=== PATIENT | male | born 1965 | race African-American/Black ===

== ENCOUNTER 2018-12-05 07:35 | Inpatient (IN) | payer OTHER ==
[~2018-12-05] VITALS: Ht 182.9 cm; Wt 68.0 kg
--- NOTE | 2018-12-05 10:24 | ERD ---
ER Documentation Chief Complaint Chief Complaint Complains of severe back pain sent by Dr Gomez for evaluation HPI 53-year-old male presents for back pain and left knee pain times 1 month. Patient was evaluated at [facility] for the same issue and was found on CT scan to have a severe herniated disc L4-L5 with left lateral L4 nerve root impingement. Patient follow with Dr. Jacobs neurosurgery. Patient states that he called Dr. Jacobs prior to arriving to the ER today and he was told that Dr. Jacobs wanted him admitted for further work up. Patient states that his back pain and knee pain is rated 7 out of 10. He is taking muscle relaxer, Motrin, gabapentin with some relief. He denies loss of bowel or bladder function. States that he does feel left lower extremity weakness. Denies any significant medical history otherwise. Patient denies recent infection, denies recent back procedure. ROS All systems reviewed and are negative except as per history of present illness. Allergies Allergies: Coded Allergies: No Known Allergy (Unverified , 12/05/18) PMhx/Soc Medical and Surgical Hx: pt denies Medical Hx, pt denies Surgical Hx History of Surgery: No Anesthesia Reaction: No Hx Neurological Disorder: No Hx Respiratory Disorders: No Hx Cardiac Disorders: No Hx Psychiatric Problems: No Hx Miscellaneous Medical Probl: No Hx Alcohol Use: No Hx Substance Use: No Hx Tobacco Use: No Smoking Status: Never smoker Physical Exam Vitals Vital Signs Date Temp Pulse Resp B/P (MAP) Pulse Ox O2 O2 Flow FiO2 Time Delivery Rate 12/05/18 97.0 51 20 140/83 100 07:40 (102) Physical Exam Const: No acute distress Neck: Full range of motion. No meningismus. no midline tenderness Resp: Clear to auscultation bilaterally Cardio: Regular rate and rhythm, systolic murmur noted Abd: Soft, non tender, non distended. Normal bowel sounds, no abdominal bruit noted Skin: No petechiae or rashes Back: no point tenderness, there is some tenderness to palpation of the low back Ext: No cyanosis, or edema, 5/5 muscle strength right lower extremity, 4/5 muscle strength left lower extremity, diffuse left knee pain to palpation, left foot mildly cool Neur: Awake and alert, bilateral upper and lower extremity sensation intact Psych: Normal Mood and Affect Result Diagram: 12/05/18 0829 12/05/18 0829 Results 24 hrs Laboratory Tests Test 12/05/18 08:29 White Blood Count 4.0 10^3/ul Red Blood Count 5.21 10^6/ul Hemoglobin 13.6 g/dl Hematocrit 41.4 % Mean Corpuscular Volume 79.5 fl Mean Corpuscular Hemoglobin 26.1 pg Mean Corpuscular Hemoglobin Concent 32.9 g/dl Red Cell Distribution Width 13.6 % Platelet Count 198 10^3/UL Mean Platelet Volume 10.5 fl Immature Granulocytes % 0.200 % Neutrophils % 52.8 % Lymphocytes % 31.3 % Monocytes % 10.7 % Eosinophils % 4.0 % Basophils % 1.0 % Nucleated Red Blood Cells % 0.0 /100WBC Immature Granulocytes # 0.010 10^3/ul Neutrophils # 2.1 10^3/ul Lymphocytes # 1.3 10^3/ul Monocytes # 0.4 10^3/ul Eosinophils # 0.2 10^3/ul Basophils # 0.0 10^3/ul Nucleated Red Blood Cells # 0.0 10^3/ul Prothrombin Time 12.3 Sec Prothrombin Time Ratio 1.0 INR International Normalized Ratio 0.90 Activated Partial Thromboplast Time 32.2 Sec Sodium Level 144 mmol/L Potassium Level 4.2 mmol/L Chloride Level 104 mmol/L Carbon Dioxide Level 30 mmol/L Anion Gap 10 Blood Urea Nitrogen 12 mg/dl Creatinine 1.07 mg/dl Est Glomerular Filtrat Rate mL/min > 60 mL/min Glucose Level 88 mg/dl Calcium Level 9.8 mg/dl Total Bilirubin 0.8 mg/dl Direct Bilirubin 0.00 mg/dl Indirect Bilirubin 0.8 mg/dl Aspartate Amino Transf (AST/SGOT) 43 IU/L Alanine Aminotransferase (ALT/SGPT) 41 IU/L Alkaline Phosphatase 58 IU/L Total Protein 7.5 g/dl Albumin 4.4 g/dl Globulin 3.10 g/dl Albumin/Globulin Ratio 1.41 Procedures/MDM Medical Decision Making: Differential diagnosis includes but not limited to muscle strain, ligamentous sprain, epidural abscess, osteomyelitis, osteoarthritis, herniated disc, compression fracture, aortic aneurysm, kidney stone, pyelonephritis, pancreatit is. Patient appeared well on physical examination. Nontoxic appearing. Patient appeared well on physical examination. Nontoxic appearing. No recent back procedure, therefore low suspicion for epidural abscess No recent infection, therefore low suspicion for osteomyelitis No trauma, therefore low suspicion for fracture No chest pain, abdominal pain and no pulse deficits noted, therefore low suspi cion for aortic dissection or pancreatitis No flank pain or fever to suggest pyelonephritis or kidney stone Lab: CBC: Shows mildly low WBC of 4.0, mild anemia of 13 CMP: no e/o severe acidosis, alkalosis, renal failure, diabetic ketoacidosis, liver disease PT, PTT INR all within normal limits EKG: Rate/Rhythm: Sinus bradycardia with heart rate 51 QRS, ST, T-waves: No changes consistent w/ acute ischemia Impression: No evidence of ischemia or arrhythmia Patient does not have any asymptoms associated with his sinus bradycardia. There was a murmur noted on physical exam however patient states he has had this since childhood. Spoke to Dr. Jacobs, neurosurgery, would like patient admitted for vascular work up. Dr. Frederick, admitting physician was contacted and agreed to admit patient for further care. Dr. Jacobs will also see the patient. Disclaimer: Inadvertent spelling and grammatical errors are likely due to EHR/dictation software use and do not reflect on the overall quality of patient care. Also, please note that the electronic time recorded on this note does not necessarily reflect the actual time of the patient encounter. YEMI PAT DO Dec 05, 2018 10:24
[2018-12-05] MEDS ORDERED: ACETAMINOPHEN 325 MG TAB PO PRN ×2 (12:00→16:00)
[2018-12-05] MEDS ORDERED: ONDANSETRON 4 MG INJ IV PRN (12:00)
[2018-12-05] MEDS ORDERED: METH500T8 PO (14:33)
[2018-12-05] MEDS ORDERED: GABA100C14 PO (14:34)
[2018-12-05] MEDS ORDERED: IBUP-1542 PO (14:35)
[2018-12-05 14:46] VITALS: Ht 182.9 cm; Wt 68.0 kg
[2018-12-05 15:14] VITALS: BP 119/79; PULSE 53; RESP 18
[2018-12-05] MEDS ORDERED: IBUPROFEN 600 MG TAB PO PRN (16:00)
[2018-12-05] MEDS ORDERED: HYDROCODONE/APAP (5/325) TAB PO PRN (16:00)
[2018-12-05] MEDS: METHOCARBAMOL 500 MG TAB PO SCH (17:45)
--- NOTE | 2018-12-05 18:40 | CONS ---
DATE OF ADMISSION: 12/05/2018 DATE OF CONSULTATION: 12/05/2018 REASON FOR CONSULTATION: Bradycardia. REQUESTING PHYSICIAN: Dr. Leoncio Frederick HISTORY OF PRESENT ILLNESS: Mr. Fay is a 53-year-old male with a history of a heart murmur, on no baseline medications, who states that he was at his friend's house and subsequently had to sneeze and after sneezing felt a pop in his back, and per chart biopsy, a history of a herniated disk, L4-L5, with an L4 nerve root impingement, who presents with back pain and left knee pain ongoing x1 month associated with lower extremity weakness. Upon arrival, temperature 97, blood pressure 140/83, pulse 60, respiratory rate 20, satting 100%. The patient's labs: White blood cell count 4, hemoglobin 13.6, platelet count of 198; sodium 144, potassium 4.2, creatinine 1.0, BUN 12, AST 43, ALT 41; INR 0.9. The patient underwent a knee x-ray revealing small vessel disease near the tibial tuberosities. The patient's electrocardiogram revealed sinus bradycardia at 51, normal axis, normal intervals, nonspecific ST and T- wave abnormalities. The patient was subsequently admitted to the floor, and since admit to the floor, he denies chest pain, shortness of breath. PAST MEDICAL HISTORY: As above in the HPI. MEDICATIONS CURRENTLY IN THE HOSPITAL: 1. Zofran. 2. Tylenol. ALLERGIES: NO KNOWN DRUG ALLERGIES. SOCIAL HISTORY: No tobacco, EtOH, illicit drug use. FAMILY HISTORY: No history of sudden cardiac or early CAD. REVIEW OF SYSTEMS: As above in the HPI. CONSTITUTIONAL: No fevers or chills. PULMONARY: No current shortness of breath. CARDIOVASCULAR: No current chest pain. Bradycardia. GASTROINTESTINAL: No vomiting. GENITOURINARY: No hematuria. MUSCULOSKELETAL: Back pain and left knee and leg pain. PSYCHIATRIC: No documented psych history. NEUROLOGIC: No documented history of CVA. PHYSICAL EXAMINATION: VITAL SIGNS: Temperature 98.4, blood pressure 101/69, pulse 60, respiratory rate 20, satting 98%. GENERAL: The patient is alert, awake, in no acute distress. NECK: JVP approximately 8 to 9 cm of water. CHEST: Fair air movement throughout. HEART: Bradycardic. Regular rhythm. Normal S1, S2. A I/ systolic murmur. Nondisplaced PMI. ABDOMEN: Positive bowel sounds. Soft. EXTREMITIES: No significant pitting edema with 1+ pulses bilateral posterior tibial. LABORATORY DATA: Labs most recently from today. No further labs for my review at this time. IMAGING STUDIES: As above in the HPI. No further imaging studies for my review at this time. ELECTROCARDIOGRAM: As above in the HPI. No further electrocardiograms for my review at this time. IMPRESSION: 1. Bradycardia with stable blood pressure at this time. 2. Abnormal electrocardiogram. Assess for acute coronary syndrome. 3. Hypertension, labile, borderline when he first came in, now fine, possibly just due to pain. 4. Back pain. 5. History of herniated disk. 6. Knee pain. RECOMMENDATIONS: 1. At this time, we would check serial EKGs to assess for any significant ongoing change: An EKG in the morning, EKG for any complaints of chest pain or change in rhythm. 2. We will complete the patient's rule-out myocardial infarction to ensure that the patient's EKG abnormalities are chronic in nature and not due to any recent acute coronary syndrome. 3. Check a TSH to assess the patient's current thyroid state and its possible contribution to bradyarrhythmias. 4. Check a fasting lipid panel for general risk stratification and initiate lipid medication as necessary. 5. Check a 2D echo to further assess the etiology of the patient's systolic murmur and assess for any other structural heart disease. 6. Ongoing surgical and likely orthopedic-surgical evaluation of knee and back pain. Thank you for allowing me to take part in the care of this patient. I will continue to follow very closely with you, with further recommendations to be made as the patient progresses through his inpatient hospital clinical course. Dictated By: MATEO RUFF/LAUREANO Conf#: [id number] DID#: [id number] CC: LEONCIO FREDERICK MD;*EndCC* MTDD
[2018-12-05 20:00] VITALS: BP 111/52; PULSE 61; RESP 18
[2018-12-05] MEDS: GABAPENTIN 100 MG CAP PO SCH (21:20)
--- NOTE | 2018-12-05 21:56 | HP ---
Date/Time of Note Date/Time of Note DATE: 12/05/18 TIME: 21:56 Assessment/Plan VTE Prophylaxis SCD contraindicated: other Pharmacological prophylaxis: other Lines/Catheters IV Catheter Type (from Nrsg): Saline Lock Assessment/Plan Assessment/Plan - Back pain. -per neurosurgery - pain control - Bradycardia - stable blood pressure now - cardiology consult - Abnormal electrocardiogram. Assess for acute coronary syndrome. - Hypertension - cardio follows, - History of herniated disk. - Knee pain possibly 2/2 herniated disk - neurosx follows Cardiology follows; will get cardiac clearance for possible surgery. Plan of care dw Dr Salinas/ staff Result Diagram: 12/05/18 0829 12/05/18 0829 Results 24hrs Laboratory Tests Test 12/05/18 08:29 12/05/18 17:59 White Blood Count 4.0 L Red Blood Count 5.21 Hemoglobin 13.6 L Hematocrit 41.4 L Mean Corpuscular Volume 79.5 L Mean Corpuscular Hemoglobin 26.1 L Mean Corpuscular Hemoglobin Concent 32.9 Red Cell Distribution Width 13.6 Platelet Count 198 Mean Platelet Volume 10.5 H Immature Granulocytes % 0.200 Neutrophils % 52.8 Lymphocytes % 31.3 Monocytes % 10.7 Eosinophils % 4.0 Basophils % 1.0 Nucleated Red Blood Cells % 0.0 Immature Granulocytes # 0.010 Neutrophils # 2.1 Lymphocytes # 1.3 Monocytes # 0.4 Eosinophils # 0.2 Basophils # 0.0 Nucleated Red Blood Cells # 0.0 Prothrombin Time 12.3 Prothrombin Time Ratio 1.0 INR International Normalized Ratio 0.90 Activated Partial Thromboplast Time 32.2 Sodium Level 144 Potassium Level 4.2 Chloride Level 104 Carbon Dioxide Level 30 Anion Gap 10 Blood Urea Nitrogen 12 Creatinine 1.07 Est Glomerular Filtrat Rate mL/min > 60 Glucose Level 88 Calcium Level 9.8 Total Bilirubin 0.8 Direct Bilirubin 0.00 Indirect Bilirubin 0.8 Aspartate Amino Transf (AST/SGOT) 43 Alanine Aminotransferase (ALT/SGPT) 41 Alkaline Phosphatase 58 Total Protein 7.5 Albumin 4.4 Globulin 3.10 Albumin/Globulin Ratio 1.41 Thyroid Stimulating Hormone (TSH) 1.080 Troponin I < 0.012 HPI/ROS Admit Date/Time Admit Date/Time Dec 05, 2018 at 11:41 am Hx of Present Illness Mr. aFy is a 53-year-old male with a past history of a heart murmur- without being on no medications , herniated back disc. Patient reported that when after he sneezed ; felt a pop in his back. Patient has history of a herniated disk, L4-L5, with an L4 nerve root impingement. Patient is admitted with c/o back pain and left knee pain x1 month associated with lower extremity weakness. During admission, temperature 97, blood pressure 140/83, pulse 60, respiratory rate 20, setting 100%. Lab work - White blood cell count 4, hemoglobin 13.6, platelet count of 198; sodium 144, potassium 4.2, creatinine 1.0, BUN 12, AST 43, ALT 41; INR 0.9. The patient underwent a knee x-ray revealing small disease near the tibial tuberosities. - EKG-revealed sinus bradycardia at 51, normal axis, normal intervals, nonspecific ST and T- wave abnormalities. Patient is admitted under Dr Frederick for further evaluation and treatment. Patient is seen in room; seems comfortable; fairly oriented. She denies any chest pain, shortness of breath, dizziness, headache, palpitations, abdominal pain , nausea, vomitting, bilateral calf pain. Plan of care dw staff. PAST MEDICAL HISTORY: As above in the HPI. MEDICATIONS CURRENTLY IN THE HOSPITAL: 1. Zofran. 2. Tylenol. ALLERGIES: NO KNOWN DRUG ALLERGIES. ROS Eyes: no complaints ENT: no complaints Respiratory: no complaints Cardiovascular: no complaints Gastrointestinal: no complaints Genitourinary: no complaints Musculoskeletal: back pain, bone/joint pain, restricted range of motion, other (Back pain and left knee and leg pain.) Skin: no complaints Neurologic: no complaints Endocrine: no complaints Psychological: nl mood/affect Immunologic: no complaints PMH/Family/Social Past Medical History SOCIAL HISTORY: No tobacco, EtOH, illicit drug use. FAMILY HISTORY: No history of sudden cardiac or early CAD. Medications Current Medications Acetaminophen (Tylenol Tab) 650 mg Q6H PRN PO MILD PAIN(1-3)OR ELEVATED TEMP; Start 12/05/18 at 16:00 Acetaminophen/ Hydrocodone Bitart ([place] (5/325)) 1 tab Q4H PRN PO MODERATE PAIN LEVEL 4-6; Start 12/05/18 at 16:00 Gabapentin (Neurontin) 100 mg BID PO Last administered on 12/05/18at 21:20; Admin Dose 100 MG; Start 12/05/18 at 21:00 Ibuprofen (Motrin) 600 mg Q8 PRN PO PAIN; Start 12/05/18 at 16:00 Methocarbamol (Robaxin) 500 mg Q6 PO Last administered on 12/05/18at 17:45; Admin Dose 500 MG; Start 12/05/18 at 18:00 Coded Allergies: No Known Allergy (Unverified , 12/05/18) Social History Alcohol Use: none Smoking Status: Never smoker Drug Use: none Exam/Review of Systems Vital Signs Vitals Vital Signs Date Temp Pulse Resp B/P (MAP) Pulse Ox O2 O2 Flow FiO2 Time Delivery Rate 12/05/18 98.2 61 18 111/52 96 20:00 (71) 12/05/18 Room Air 13:33 Exam Constitutional: alert, oriented, well developed Psych: nl mood/affect Head: atraumatic Eyes: EOMI, nl lids, nl sclera ENMT: nl external ears & nose Neck: non-tender Respiratory: clear to auscultation (bilaterally) Cardiovascular: nl pulses, other (s1s2) Gastrointestinal: soft, non-tender Musculoskeletal: nl extremities to inspection Extremities: normal pulses Neurological: nl mental status, nl speech Skin: nl turgor Lymph: nontender MIRIAM HENSLEY Dec 05, 2018 21:56
[2018-12-06] MEDS: METHOCARBAMOL 500 MG TAB PO SCH ×5 (00:38→23:59)
[2018-12-06 02:00] VITALS: BP 112/60; PULSE 69; RESP 18
[2018-12-06] MEDS: PANTOPRAZOLE (EC) 40 MG TAB PO SCH (06:09)
[2018-12-06 07:00] VITALS: BP 123/74; PULSE 70; RESP 18
[2018-12-06] MEDS: DOCUSATE SODIUM 100 MG CAP PO SCH ×2 (08:09→20:13)
[2018-12-06] MEDS: GABAPENTIN 100 MG CAP PO SCH ×2 (08:09→20:20)
--- NOTE | 2018-12-06 09:40 | CONS ---
Consult Date/Type/Reason Admit Date/Time Dec 05, 2018 at 11:41 Initial Consult Date Date/Time of Note DATE: 12/06/18 TIME: 09:37 Subjective NO acute events - pt stable - HR controlled. ROS: No fever, no chills, no nausea, no vomiting, no diarrhea/constipation No recent weight changes No chest pain, no PND, no orthopnea - mild SOB No dizziness, blurred vision No thirst, no heat or cold intolerance Objective Vitals Vital Signs Date Temp Pulse Resp B/P (MAP) Pulse Ox O2 O2 Flow FiO2 Time Delivery Rate 12/06/18 98.1 70 18 123/74 99 Room Air 07:00 (90) Intake and Output 12/05/18 12/05/18 12/06/18 1515:00 23:00 07:00 IntakeIntake Total 240 ml 120 ml BalanceBalance 240 ml 120 ml Exam General: WN/WD/NAD, AOx 3 HEENT: Unicetric/atraumatic/EOMI (follow commands) NECK: JVD elevated, no thyromegaly Lymph: no lymphadenopathy HEART: regular with no S3, II/ systolic murmur at apex LUNGS: Coarse sounds ABD: soft, NT, ND, +BS : Intact Neuro: non focal SKIN: chronic changes EXT: NO edema Results/Medications Result Diagram: 12/06/1852912/06/18 0530 Results 24 hrs Laboratory Tests Test 12/05/18 17:59 12/06/18 00:20 12/06/18 05:30 Troponin I < 0.012 < 0.012 White Blood Count 4.1 L Red Blood Count 5.04 Hemoglobin 13.2 L Hematocrit 38.8 L Mean Corpuscular Volume 77.0 L Mean Corpuscular Hemoglobin 26.2 L Mean Corpuscular Hemoglobin Concent 34.0 Red Cell Distribution Width 13.6 Platelet Count 194 Mean Platelet Volume 11.0 H Immature Granulocytes % 0.200 Neutrophils % 47.1 Lymphocytes % 35.2 Monocytes % 12.1 H Eosinophils % 4.4 Basophils % 1.0 Nucleated Red Blood Cells % 0.0 Immature Granulocytes # 0.010 Neutrophils # 1.9 Lymphocytes # 1.4 Monocytes # 0.5 Eosinophils # 0.2 Basophils # 0.0 Nucleated Red Blood Cells # 0.0 Sodium Level 141 Potassium Level 4.2 Chloride Level 105 Carbon Dioxide Level 28 Anion Gap 8 Blood Urea Nitrogen 15 Creatinine 1.05 Est Glomerular Filtrat Rate mL/min > 60 Glucose Level 86 Calcium Level 9.5 Triglycerides Level 73 Cholesterol Level 191 LDL Cholesterol, Calculated 121 HDL Cholesterol 55 Cholesterol/HDL Ratio 3.4 Thyroid Stimulating Hormone (TSH) 1.390 Home Meds Reported Medications Ibuprofen* (Ibuprofen*) 600 Mg Tablet, 600 MG PO Q8 PRN for PAIN, TAB 12/05/18 Gabapentin* (Gabapentin*) 100 Mg Capsule, 100 MG PO BID, #90 CAP 12/05/18 Methocarbamol* (Methocarbamol*) 500 Mg Tablet, 500 MG PO Q6, TAB 12/05/18 Medications Current Medications Acetaminophen (Tylenol Tab) 650 mg Q6H PRN PO MILD PAIN(1-3)OR ELEVATED TEMP; Start 12/05/18 at 16:00 Acetaminophen/ Hydrocodone Bitart ([place] (5/325)) 1 tab Q4H PRN PO MODERATE PAIN LEVEL 4-6; Start 12/05/18 at 16:00 Gabapentin (Neurontin) 100 mg BID PO Last administered on 12/05/18at 21:20; Admin Dose 100 MG; Start 12/05/18 at 21:00 Ibuprofen (Motrin) 600 mg Q8 PRN PO PAIN; Start 12/05/18 at 16:00 Methocarbamol (Robaxin) 500 mg Q6 PO Last administered on 12/06/18at 06:09; Admin Dose 500 MG; Start 12/05/18 at 18:00 Pantoprazole (Protonix Tab) 40 mg DAILY@06 PO Last administered on 12/06/18at 06:09; Admin Dose 40 MG; Start 12/06/18 at 06:00 Docusate Sodium (Colace) 100 mg BID PO ; Start 12/06/18 at 09:00 Assessment/Plan Hospital Course (Demo Recall) 1. Bradycardia with stable blood pressure at this time - HR stable - off tele now- not dizzy. 2. Abnormal electrocardiogram. Assess for acute coronary syndrome - r/o PA. 3. Hypertension, labile, borderline when he first came in, now fine, possibly just due to pain - con't to adjust Rx. 4. Back pain -defer to pMD. 5. History of herniated disk - no surgery planned now. 6. Knee pain. DAREK SIMMS MD Dec 06, 2018 09:40
--- NOTE | 2018-12-06 10:05 | RADRPT ---
Echocardiogram Report Patient Name: To BYERS ID: [id number] : 12 (53y 3m)Study Date: 12/05/2018 3:41:23 PM Gender: MAccession #: [id number] Tech: Ady Huerta [facility] Location: 2[address] Ref.Physician: MATEO SKAGGS Height(Cm): BSA: Weight(Kg): Quality: AdequateAccount #: Procedures: Echocardiographic Report: Transthoracic echocardiogram with complete 2D, M-Mode, and doppler examination. Indications: Systolic Murmur. Measurements: 2D/M Mode Doppler Measurement Value Normal Range Measurement Value Normal Range LVIDd 2D 4.2 [ 4.2 - 5.8 ] cm FRANCISCO VTI 0.8 [ 2.0 - 4.0 ] cm2 LVIDs 2D 2.6 [ 2.5 - 4.0 ] cm AV Mean Shankar 2.8 [ 70.0 - 90.0 ] cm/sec LVPWd 2D 1.0 [ 0.6 - 1.0 ] cm AV Mean PG 38.0 [ 2.0 - 4.0 ] mmHg IVSd 2D 1.1 [ 0.6 - 1.0 ] cm AV Peak Shankar 1.0 [ 100.0 - 170.0 ] cm/sec AoR Diam 2D 3.1 [ 2.6 - 3.4 ] cm AV Peak PG 4.0 [ 2.0 - 9.0 ] mmHg EDV 2D 76.8 [ 62.0 - 150.0 ] ml AV VTI 100.0 cm ESV 2D 24.1 [ 21.0 - 61.0 ] ml LVOT Mean Shankar 0.6 [ 60.0 - 80.0 ] cm/sec EF 2D 68.6 [ 52.0 - 72.0 ] percent LVOT Mean PG 2.0 [ 1.0 - 3.0 ] mmHg LA Dimen 2D 3.6 [ 3.0 - 4.0 ] cm LVOT Peak Shankar 0.9 [ 70.0 - 110.0 ] cm/sec LVOT Diam 2.1 [ 2.3 - 2.9 ] cm LVOT Peak PG 3.0 [ 2.0 - 6.0 ] mmHg LVOT VTI 24.4 [ 20.0 - 30.0 ] cm MV E Peak Shankar 0.7 [ 60.0 - 130.0 ] cm/sec MV A Peak Shankar 0.7 [ 100.0 - 120.0 ] cm/sec MV E/A 1.0 [ 0.8 - 1.5 ] ratio MV Decel Time 313 [ 104 - 258 ] msec Lat E` Shankar 0.1 [ 10.0 - 15.0 ] cm/sec Lateral E/E` 7.0 [ 1.0 - 2.0 ] ratio Med E` Shankar 0.1 cm/sec MV E/A 1.0 [ 0.8 - 1.5 ] ratio TR Peak Shankar 2.7 [ 100.0 - 280.0 ] cm/sec TR Peak PG 30.0 mmHg Findings: Left Ventricle: Normal left ventricular systolic function. Normal left ventricular cavity size. Mild concentric left ventricular hypertrophy. Ejection fraction is visually estimated at 65 %. Tissue Doppler/Mitral Doppler indices are consistent with impaired relaxation (Stage I diastolic dysfunction). Right Ventricle: Normal right ventricular size. Normal right ventricular systolic function. Left Atrium: The left atrium is normal in size. Right Atrium: The right atrium is normal in size. Mitral Valve: Mild mitral leaflet calcification. Mild mitral annular calcification. Trace mitral regurgitation. Aortic Valve: Moderate to severe aortic stenosis. Aortic valve Max velocity 4.16 m/sec. Max PG 69.20 mmHg. Mean PG 38.00 mmHg. Aortic valve area 0.81 cm2. Aortic cusps appear moderately calcified. Tricuspid Valve: Normal appearance of the tricuspid valve. Estimated peak PA systolic pressure 38 mmHg. There is mild tricuspid regurgitation. Pericardium: Normal pericardium with no significant pericardial effusion. Aorta: Ascending aorta is mildly dilated. Ascending Aorta 4.50 cm. IVC: Dilated IVC with respiratory collapse consistent with elevated right atrial pressure. Conclusions: Normal left ventricular systolic function. Normal left ventricular cavity size. Mild concentric left ventricular hypertrophy. Ejection fraction is visually estimated at 65 %. Tissue Doppler/Mitral Doppler indices are consistent with impaired relaxation (Stage I diastolic dysfunction). Mild mitral leaflet calcification. Mild mitral annular calcification. Trace mitral regurgitation. Moderate to severe aortic stenosis. Aortic valve Max velocity 4.16 m/sec. Max PG 69.20 mmHg. Mean PG 38.00 mmHg. Aortic valve area 0.81 cm2. Aortic cusps appear moderately calcified. Normal appearance of the tricuspid valve. Estimated peak PA systolic pressure 38 mmHg. There is mild tricuspid regurgitation. Electronically Signed By: Baldomero Bustamante 2018-12-06 10:04:34 PST
[2018-12-06 14:00] VITALS: BP 121/75; PULSE 55; RESP 18
[2018-12-06 21:27] VITALS: BP 115/83; PULSE 50; RESP 20
[2018-12-06 22:00] VITALS: PULSE 61
--- NOTE | 2018-12-06 23:03 | PN ---
Date/Time of Note Date/Time of Note DATE: 12/06/18 TIME: 23:03 Assessment/Plan VTE Prophylaxis Risk score (from Ns)>0 risk: 1 SCD applied (from Ns): Yes Pharmacological prophylaxis: other Lines/Catheters IV [facility] ([facility] Saline Lock Assessment/Plan Result Diagram: 12/06/1830 12/06/18 0530 Results 24hrs Laboratory Tests Test 12/06/18 00:20 12/06/18 05:30 Troponin I < 0.012 White Blood Count 4.1 L Red Blood Count 5.04 Hemoglobin 13.2 L Hematocrit 38.8 L Mean Corpuscular Volume 77.0 L Mean Corpuscular Hemoglobin 26.2 L Mean Corpuscular Hemoglobin Concent 34.0 Red Cell Distribution Width 13.6 Platelet Count 194 Mean Platelet Volume 11.0 H Immature Granulocytes % 0.200 Neutrophils % 47.1 Lymphocytes % 35.2 Monocytes % 12.1 H Eosinophils % 4.4 Basophils % 1.0 Nucleated Red Blood Cells % 0.0 Immature Granulocytes # 0.010 Neutrophils # 1.9 Lymphocytes # 1.4 Monocytes # 0.5 Eosinophils # 0.2 Basophils # 0.0 Nucleated Red Blood Cells # 0.0 Sodium Level 141 Potassium Level 4.2 Chloride Level 105 Carbon Dioxide Level 28 Anion Gap 8 Blood Urea Nitrogen 15 Creatinine 1.05 Est Glomerular Filtrat Rate mL/min > 60 Glucose Level 86 Calcium Level 9.5 Triglycerides Level 73 Cholesterol Level 191 LDL Cholesterol, Calculated 121 HDL Cholesterol 55 Cholesterol/HDL Ratio 3.4 Thyroid Stimulating Hormone (TSH) 1.390 Exam/Review of Systems Exam Vitals Vital Signs Date Temp Pulse Resp B/P (MAP) Pulse Ox O2 O2 Flow FiO2 Time Delivery Rate 12/06/18 98.5 50 20 115/83 99 21:27 (94) 12/06/18 Room Air 14:00 Intake and Output 12/05/18 12/05/18 12/06/18 1515:00 23:00 07:00 IntakeIntake Total 240 ml 120 ml BalanceBalance 240 ml 120 ml Results Results 24hrs Laboratory Tests Test 12/06/18 00:20 12/06/18 05:30 Troponin I < 0.012 White Blood Count 4.1 L Red Blood Count 5.04 Hemoglobin 13.2 L Hematocrit 38.8 L Mean Corpuscular Volume 77.0 L Mean Corpuscular Hemoglobin 26.2 L Mean Corpuscular Hemoglobin Concent 34.0 Red Cell Distribution Width 13.6 Platelet Count 194 Mean Platelet Volume 11.0 H Immature Granulocytes % 0.200 Neutrophils % 47.1 Lymphocytes % 35.2 Monocytes % 12.1 H Eosinophils % 4.4 Basophils % 1.0 Nucleated Red Blood Cells % 0.0 Immature Granulocytes # 0.010 Neutrophils # 1.9 Lymphocytes # 1.4 Monocytes # 0.5 Eosinophils # 0.2 Basophils # 0.0 Nucleated Red Blood Cells # 0.0 Sodium Level 141 Potassium Level 4.2 Chloride Level 105 Carbon Dioxide Level 28 Anion Gap 8 Blood Urea Nitrogen 15 Creatinine 1.05 Est Glomerular Filtrat Rate mL/min > 60 Glucose Level 86 Calcium Level 9.5 Triglycerides Level 73 Cholesterol Level 191 LDL Cholesterol, Calculated 121 HDL Cholesterol 55 Cholesterol/HDL Ratio 3.4 Thyroid Stimulating Hormone (TSH) 1.390 Medications Medication Current Medications Acetaminophen (Tylenol Tab) 650 mg Q6H PRN PO MILD PAIN(1-3)OR ELEVATED TEMP; Start 12/05/18 at 16:00 Acetaminophen/ Hydrocodone Bitart ([place] (5/325)) 1 tab Q4H PRN PO MODERATE PAIN LEVEL 4-6; Start 12/05/18 at 16:00 Gabapentin (Neurontin) 100 mg BID PO Last administered on 12/06/18at 20:20; Admin Dose 100 MG; Start 12/05/18 at 21:00 Ibuprofen (Motrin) 600 mg Q8 PRN PO PAIN; Start 12/05/18 at 16:00 Methocarbamol (Robaxin) 500 mg Q6 PO Last administered on 12/06/18at 17:35; Admin Dose 500 MG; Start 12/05/18 at 18:00 Pantoprazole (Protonix Tab) 40 mg DAILY@06 PO Last administered on 12/06/18at 06:09; Admin Dose 40 MG; Start 12/06/18 at 06:00 Docusate Sodium (Colace) 100 mg BID PO ; Start 12/06/18 at 09:00 MIRIAM HENSLEY Dec 06, 2018 23:03
[2018-12-07 02:24] VITALS: BP 113/76; PULSE 62; RESP 18
[2018-12-07] MEDS: METHOCARBAMOL 500 MG TAB PO SCH ×3 (06:05→18:16)
[2018-12-07] MEDS: PANTOPRAZOLE (EC) 40 MG TAB PO SCH (06:05)
[2018-12-07 08:00] VITALS: BP 97/77; PULSE 77; RESP 20
[2018-12-07] MEDS: DOCUSATE SODIUM 100 MG CAP PO SCH ×2 (08:35→21:00)
[2018-12-07] MEDS: GABAPENTIN 100 MG CAP PO SCH ×2 (08:35→20:30)
--- NOTE | 2018-12-07 11:54 | CONS ---
Assessment/Plan Assessment/Plan Assessment/Plan (Daily) Neurosurgery Consult Note Mechanical LBP with LE radiculopathy Weakness (proximal > distal) Seen by Cardiology Plan Consultation Date/Type/Reason Admit Date/Time Dec 05, 2018 at 11:41 Date/Time of Note DATE: 12/07/18 TIME: 11:52 Past Medical History Home Meds Reported Medications Ibuprofen* (Ibuprofen*) 600 Mg Tablet, 600 MG PO Q8 PRN for PAIN, TAB 12/05/18 Gabapentin* (Gabapentin*) 100 Mg Capsule, 100 MG PO BID, #90 CAP 12/05/18 Methocarbamol* (Methocarbamol*) 500 Mg Tablet, 500 MG PO Q6, TAB 12/05/18 Medications Current Medications Acetaminophen (Tylenol Tab) 650 mg Q6H PRN PO MILD PAIN(1-3)OR ELEVATED TEMP; Start 12/05/18 at 16:00 Acetaminophen/ Hydrocodone Bitart ([place] (5/325)) 1 tab Q4H PRN PO MODERATE P AIN LEVEL 4-6; Start 12/05/18 at 16:00 Gabapentin (Neurontin) 100 mg BID PO Last administered on 12/07/18at 08:35; Admin Dose 100 MG; Start 12/05/18 at 21:00 Ibuprofen (Motrin) 600 mg Q8 PRN PO PAIN; Start 12/05/18 at 16:00 Methocarbamol (Robaxin) 500 mg Q6 PO Last administered on 12/07/18at 06:05; Admin Dose 500 MG; Start 12/05/18 at 18:00 Pantoprazole (Protonix Tab) 40 mg DAILY@06 PO Last administered on 12/07/18at 06:05; Admin Dose 40 MG; Start 12/06/18 at 06:00 Docusate Sodium (Colace) 100 mg BID PO ; Start 12/06/18 at 09:00 Allergies: Coded Allergies: No Known Allergy (Unverified , 12/05/18) Social History Alcohol Use: none Smoking Status: Never smoker Drug Use: none Exam/Review of Systems Exam Vitals Vital Signs Date Temp Pulse Resp B/P (MAP) Pulse Ox O2 O2 Flow FiO2 Time Delivery Rate 12/07/18 97.8 77 20 97/77 (84) 96 08:00 12/06/18 Room Air 14:00 Intake and Output 2/12/06/18 12/07/18 1515:00 23:00 07:00 IntakeIntake Total 1600 ml 240 ml OutputOutput Total 800 ml BalanceBalance 800 ml 240 ml Results Result Diagram: 12/07/18 0517 12/07/18 0517 Results 24hrs Laboratory Tests Test 12/07/18 05:17 White Blood Count 3.8 L Red Blood Count 5.41 Hemoglobin 14.1 Hematocrit 41.9 L Mean Corpuscular Volume 77.4 L Mean Corpuscular Hemoglobin 26.1 L Mean Corpuscular Hemoglobin Concent 33.7 Red Cell Distribution Width 13.3 Platelet Count 196 Mean Platelet Volume 10.9 H Immature Granulocytes % 0.500 H Neutrophils % 50.1 Lymphocytes % 32.8 Monocytes % 11.3 H Eosinophils % 4.5 Basophils % 0.8 Nucleated Red Blood Cells % 0.0 Immature Granulocytes # 0.020 Neutrophils # 1.9 Lymphocytes # 1.3 Monocytes # 0.4 Eosinophils # 0.2 Basophils # 0.0 Nucleated Red Blood Cells # 0.0 Sodium Level 141 Potassium Level 4.1 Chloride Level 104 Carbon Dioxide Level 28 Anion Gap 9 Blood Urea Nitrogen 15 Creatinine 1.01 Est Glomerular Filtrat Rate mL/min > 60 Glucose Level 91 Calcium Level 10.0 Medications Medication Current Medications Acetaminophen (Tylenol Tab) 650 mg Q6H PRN PO MILD PAIN(1-3)OR ELEVATED TEMP; Start 12/05/18 at 16:00 Acetaminophen/ Hydrocodone Bitart ([place] (5/325)) 1 tab Q4H PRN PO MODERATE PAIN LEVEL 4-6; Start 12/05/18 at 16:00 Gabapentin (Neurontin) 100 mg BID PO Last administered on 12/07/18at 08:35; Admin Dose 100 MG; Start 12/05/18 at 21:00 Ibuprofen (Motrin) 600 mg Q8 PRN PO PAIN; Start 12/05/18 at 16:00 Methocarbamol (Robaxin) 500 mg Q6 PO Last administered on 12/07/18at 06:05; Admin Dose 500 MG; Start 12/05/18 at 18:00 Pantoprazole (Protonix Tab) 40 mg DAILY@06 PO Last administered on 12/07/18at 06:05; Admin Dose 40 MG; Start 12/06/18 at 06:00 Docusate Sodium (Colace) 100 mg BID PO ; Start 12/06/18 at 09:00 SUSAN REEDER MD Dec 07, 2018 11:54
[2018-12-07 12:30] VITALS: BP 120/79; PULSE 75; RESP 20
--- NOTE | 2018-12-07 12:51 | PN ---
Date/Time of Note Date/Time of Note DATE: 12/07/18 TIME: 12:48 Assessment/Plan VTE Prophylaxis Risk score (from Nsg)>0 risk: 1 SCD applied (from Nsg): Yes SCD contraindicated: low risk/ambulating Pharmacological prophylaxis: NA/contraindicated Pharm contraindication: low risk/ambulating Lines/Catheters IV Catheter Type (from Nrsg): Saline Lock Assessment/Plan Assessment/Plan Impression Mechanical LBP with LLE Radiculopathy Left leg pain /weakness not purely related to Previous MRI study which was reviewed by during pt's initial outpt evaluation Proximal weakness > distal Pt states "heat/cold difference" to Left leg which radiates --> terminates to anterior portion of knee Plan MRI C/L spine CT Abd/Pelvis with angio to evaluate for any vascular issues will evaluate for possible spine surgery once studies completed. Result Diagram: 12/07/1851612/07/1817 Results 24hrs Laboratory Tests Test 12/07/18 05:17 White Blood Count 3.8 L Red Blood Count 5.41 Hemoglobin 14.1 Hematocrit 41.9 L Mean Corpuscular Volume 77.4 L Mean Corpuscular Hemoglobin 26.1 L Mean Corpuscular Hemoglobin Concent 33.7 Red Cell Distribution Width 13.3 Platelet Count 196 Mean Platelet Volume 10.9 H Immature Granulocytes % 0.500 H Neutrophils % 50.1 Lymphocytes % 32.8 Monocytes % 11.3 H Eosinophils % 4.5 Basophils % 0.8 Nucleated Red Blood Cells % 0.0 Immature Granulocytes # 0.020 Neutrophils # 1.9 Lymphocytes # 1.3 Monocytes # 0.4 Eosinophils # 0.2 Basophils # 0.0 Nucleated Red Blood Cells # 0.0 Sodium Level 141 Potassium Level 4.1 Chloride Level 104 Carbon Dioxide Level 28 Anion Gap 9 Blood Urea Nitrogen 15 Creatinine 1.01 Est Glomerular Filtrat Rate mL/min > 60 Glucose Level 91 Calcium Level 10.0 Exam/Review of Systems Exam Vitals Vital Signs Date Temp Pulse Resp B/P (MAP) Pulse Ox O2 O2 Flow FiO2 Time Delivery Rate 12/07/18 97.8 77 20 97/77 (84) 96 08:00 12/06/18 Room Air 14:00 Intake and Output 12/06/18 12/06/18 12/07/18 1515:00 23:00 07:00 IntakeIntake Total 1600 ml 240 ml OutputOutput Total 800 ml BalanceBalance 800 ml 240 ml Results Results 24hrs Laboratory Tests Test 12/07/18 05:17 White Blood Count 3.8 L Red Blood Count 5.41 Hemoglobin 14.1 Hematocrit 41.9 L Mean Corpuscular Volume 77.4 L Mean Corpuscular Hemoglobin 26.1 L Mean Corpuscular Hemoglobin Concent 33.7 Red Cell Distribution Width 13.3 Platelet Count 196 Mean Platelet Volume 10.9 H Immature Granulocytes % 0.500 H Neutrophils % 50.1 Lymphocytes % 32.8 Monocytes % 11.3 H Eosinophils % 4.5 Basophils % 0.8 Nucleated Red Blood Cells % 0.0 Immature Granulocytes # 0.020 Neutrophils # 1.9 Lymphocytes # 1.3 Monocytes # 0.4 Eosinophils # 0.2 Basophils # 0.0 Nucleated Red Blood Cells # 0.0 Sodium Level 141 Potassium Level 4.1 Chloride Level 104 Carbon Dioxide Level 28 Anion Gap 9 Blood Urea Nitrogen 15 Creatinine 1.01 Est Glomerular Filtrat Rate mL/min > 60 Glucose Level 91 Calcium Level 10.0 Medications Medication Current Medications Acetaminophen (Tylenol Tab) 650 mg Q6H PRN PO MILD PAIN(1-3)OR ELEVATED TEMP; Start 12/05/18 at 16:00 Acetaminophen/ Hydrocodone Bitart ([place] (5/325)) 1 tab Q4H PRN PO MODERATE PAIN LEVEL 4-6; Start 12/05/18 at 16:00 Gabapentin (Neurontin) 100 mg BID PO Last administered on 12/07/18at 08:35; A dmin Dose 100 MG; Start 12/05/18 at 21:00 Ibuprofen (Motrin) 600 mg Q8 PRN PO PAIN; Start 12/05/18 at 16:00 Methocarbamol (Robaxin) 500 mg Q6 PO Last administered on 12/07/18at 12:18; Admin Dose 500 MG; Start 12/05/18 at 18:00 Pantoprazole (Protonix Tab) 40 mg DAILY@06 PO Last administered on 12/07/18at 06:05; Admin Dose 40 MG; Start 12/06/18 at 06:00 Docusate Sodium (Colace) 100 mg BID PO ; Start 12/06/18 at 09:00 HUGH DEL TORO NP Dec 07, 2018 12:51
[2018-12-07] MEDS ORDERED: SOD CHLORIDE 0.9% 100 ML ONE (16:13)
[2018-12-07] MEDS ORDERED: IOHEXOL 100 ML ONE (16:13)
--- NOTE | 2018-12-07 17:16 | CONS ---
Assessment/Plan Assessment/Plan Hospital Course (Demo Recall) IMPRESSION: 1. Bradycardia with stable blood pressure at this time. 2. Abnormal electrocardiogram. Assess for acute coronary syndrome.-neg trop x 2/NL EF by echo 60-65 3. Hypertension-borderline low BP intermittent 4. Back pain. 5. History of herniated disk. 6. Knee pain. 7. Dyslipidemia- LDL 121, HDL 55 Recc: -serial ecg's -Follow BP clsoely -ongoing NRSG eval with MRI pnding -pain control Consultation Date/Type/Reason Admit Date/Time Dec 07, 2018 at 14:02 Initial Consult Date 12/06/18 Type of Consult Cardiology Reason for Consultation Bradycardia Requesting Provider: ELIER ISSA MD Date/Time of Note DATE: 12/07/18 TIME: 17:12 Exam/Review of Systems Vital Signs Vitals Vital Signs Date Temp Pulse Resp B/P (MAP) Pulse Ox O2 O2 Flow FiO2 Time Delivery Rate 12/07/18 98.6 75 20 120/79 98 12:30 (93) 12/06/18 Room Air 14:00 Intake and Output 12/06/18 12/06/18 12/07/18 1515:00 23:00 07:00 IntakeIntake Total 1600 ml 240 ml OutputOutput Total 800 ml BalanceBalance 800 ml 240 ml Exam Exam Review of Systems: CONSTITUTIONAL: No fevers, chills. PULMONARY: No sob CARDIOVASCULAR: No chest pain/palpitations GASTROINTESTINAL: No nausea/vomiting. GENITOURINARY: No hematuria/dysuria. MUSCULOSKELETAL: No myagias/arthalgias. PSYCHIATRIC: The patient denies depression. NEUROLOGIC: No weakness Constitutional: alert Psych: no complaints Head: normocephalic ENMT: mucosa pink and moist Neck: supple, jvd (9 cm water) Respiratory: clear to auscultation Cardiovascular: regular rate and rhythm Gastrointestinal: soft, non-tender Musculoskeletal: muscle weakness (LE bilateral) Extremities: edema (none) Neurological: focal weakness Labs Result Diagram: 12/07/1817 12/07/18 0517 Results 24hrs Laboratory Tests Test 12/07/18 05:17 White Blood Count 3.8 L Red Blood Count 5.41 Hemoglobin 14.1 Hematocrit 41.9 L Mean Corpuscular Volume 77.4 L Mean Corpuscular Hemoglobin 26.1 L Mean Corpuscular Hemoglobin Concent 33.7 Red Cell Distribution Width 13.3 Platelet Count 196 Mean Platelet Volume 10.9 H Immature Granulocytes % 0.500 H Neutrophils % 50.1 Lymphocytes % 32.8 Monocytes % 11.3 H Eosinophils % 4.5 Basophils % 0.8 Nucleated Red Blood Cells % 0.0 Immature Granulocytes # 0.020 Neutrophils # 1.9 Lymphocytes # 1.3 Monocytes # 0.4 Eosinophils # 0.2 Basophils # 0.0 Nucleated Red Blood Cells # 0.0 Sodium Level 141 Potassium Level 4.1 Chloride Level 104 Carbon Dioxide Level 28 Anion Gap 9 Blood Urea Nitrogen 15 Creatinine 1.01 Est Glomerular Filtrat Rate mL/min > 60 Glucose Level 91 Calcium Level 10.0 Medications Medications Current Medications Acetaminophen (Tylenol Tab) 650 mg Q6H PRN PO MILD PAIN(1-3)OR ELEVATED TEMP; Start 12/05/18 at 16:00 Acetaminophen/ Hydrocodone Bitart ([place] (5/325)) 1 tab Q4H PRN PO MODERATE PAIN LEVEL 4-6; Start 12/05/18 at 16:00 Gabapentin (Neurontin) 100 mg BID PO Last administered on 12/07/18at 08:35; Admin Dose 100 MG; Start 12/05/18 at 21:00 Ibuprofen (Motrin) 600 mg Q8 PRN PO PAIN; Start 12/05/18 at 16:00 Methocarbamol (Robaxin) 500 mg Q6 PO Last administered on 12/07/18at 12:18; Admin Dose 500 MG; Start 12/05/18 at 18:00 Pantoprazole (Protonix Tab) 40 mg DAILY@06 PO Last administered on 12/07/18at 06:05; Admin Dose 40 MG; Start 12/06/18 at 06:00 Docusate Sodium (Colace) 100 mg BID PO ; Start 12/06/18 at 09:00 MATEO SKAGGS Dec 07, 2018 17:16
--- NOTE | 2018-12-07 17:55 | PN ---
DATE: 12/07/2018 SUBJECTIVE: The patient continues to have left lower extremity pain mostly in the middle part of the leg. No numbness or tingling. Denies any significant back pain. No reported fever or chills. PHYSICAL EXAMINATION: GENERAL: Revealed the patient to be awake, alert. VITAL SIGNS: Temperature 97.8, pulse 77, respiration 20, blood pressure 97/77, O2 saturation 96% on room air. HEENT: No eye discharge or redness. Nose and ears are normal. NECK: No mass. CHEST: Fairly clear. CARDIOVASCULAR: S1, S2, normal. No murmur. ABDOMEN: Soft, nondistended, nontender. Bowel sounds are present. EXTREMITIES: No leg edema. NEUROLOGIC: The patient is awake, alert, fairly oriented with no gross focal deficit. Left leg exam ination revealed a palpable dorsalis pedis and tibialis posterior. Extremity was not cold. IMPRESSION: History of low back pain and now pain mostly in the left lower extremity. test ne gative. The patient was seen by Dr. Jacobs and will undergo CT lower extremity angiogram and MRI of t he C-spine and L-spine. Further recommendation will depend on patient's hospital course. Chemistry this morning came back normal. Lipid panel revealed LDL of 141. TSH was normal. CBC this month don e this morning, WBC 3.8, hemoglobin 14.1, platelet 196. Plan of care was discussed with patient and his mother. Dictated By: ELIER ISSA MD AB/NTS Conf#: [id number] DID#: [id number] CC: MATEO SKAGGS MD;*EndCC*
[2018-12-07 21:29] VITALS: BP 127/66; PULSE 70; RESP 20
[2018-12-08] MEDS: METHOCARBAMOL 500 MG TAB PO SCH ×4 (00:50→17:43)
[2018-12-08 02:45] VITALS: BP 102/68; PULSE 58; RESP 20
[2018-12-08] MEDS: PANTOPRAZOLE (EC) 40 MG TAB PO SCH (05:32)
[2018-12-08 07:25] VITALS: BP 113/75; PULSE 66; RESP 18
[2018-12-08] MEDS: GABAPENTIN 100 MG CAP PO SCH ×2 (08:39→20:14)
[2018-12-08] MEDS: DOCUSATE SODIUM 100 MG CAP PO SCH ×2 (08:39→20:14)
[2018-12-08 14:10] VITALS: BP 108/74; PULSE 59; RESP 16
--- NOTE | 2018-12-08 14:57 | PN ---
Date/Time of Note Date/Time of Note DATE: 12/08/18 TIME: 14:55 Assessment/Plan VTE Prophylaxis Risk score (from Ns)>0 risk: 1 SCD applied (from [facility]): Yes SCD contraindicated: low risk/ambulating Pharmacological prophylaxis: NA/contraindicated Pharm contraindication: low risk/ambulating Lines/Catheters [facility]from [facility] Saline Lock Central line still needed: No Urinary Cath still in place: No Assessment/Plan Assessment/Plan Neurosurgery Patient seen and examined VSS AAOX4 PERRL FC x 4, slight improvement in LLE weakness (Proximal > Distal) impression MRI C/L spine reviewed and noted. Mild narrowing but not consistent with pt's symptoms CT angio abd/LE negative Plan no surgery indicated at this time recommend Neurology evaluation. Pt's has Father in 40's due to MS follow up with Dr. Jacobs in 2-3 weeks. Result Diagram: 12/08/186 12/08/186 Results 24hrs Laboratory Tests Test 12/08/18 04:46 White Blood Count 4.9 # Red Blood Count 5.27 Hemoglobin 14.0 Hematocrit 40.7 L Mean Corpuscular Volume 77.2 L Mean Corpuscular Hemoglobin 26.6 L Mean Corpuscular Hemoglobin Concent 34.4 Red Cell Distribution Width 13.5 Platelet Count 196 Mean Platelet Volume 10.5 H Immature Granulocytes % 0.400 Neutrophils % 48.0 Lymphocytes % 36.3 Monocytes % 10.6 Eosinophils % 3.9 Basophils % 0.8 Nucleated Red Blood Cells % 0.0 Immature Granulocytes # 0.020 Neutrophils # 2.4 Lymphocytes # 1.8 Monocytes # 0.5 Eosinophils # 0.2 Basophils # 0.0 Nucleated Red Blood Cells # 0.0 Sodium Level 140 Potassium Level 3.9 Chloride Level 105 Carbon Dioxide Level 27 Anion Gap 8 Blood Urea Nitrogen 16 Creatinine 1.04 Est Glomerular Filtrat Rate mL/min > 60 Glucose Level 83 Calcium Level 9.5 Exam/Review of Systems Exam Vitals Vital Signs Date Temp Pulse Resp B/P (MAP) Pulse Ox O2 O2 Flow FiO2 Time Delivery Rate 12/08/18 98.2 59 16 108/74 99 Room Air 14:10 (85) Intake and Output 12/07/18 12/07/18 12/08/18 1515:00 23:00 07:00 IntakeIntake Total 700 ml 480 ml OutputOutput Total 300 ml BalanceBalance 400 ml 480 ml Results Results 24hrs Laboratory Tests Test 12/08/18 04:46 White Blood Count 4.9 # Red Blood Count 5.27 Hemoglobin 14.0 Hematocrit 40.7 L Mean Corpuscular Volume 77.2 L Mean Corpuscular Hemoglobin 26.6 L Mean Corpuscular Hemoglobin Concent 34.4 Red Cell Distribution Width 13.5 Platelet Count 196 Mean Platelet Volume 10.5 H Immature Granulocytes % 0.400 Neutrophils % 48.0 Lymphocytes % 36.3 Monocytes % 10.6 Eosinophils % 3.9 Basophils % 0.8 Nucleated Red Blood Cells % 0.0 Immature Granulocytes # 0.020 Neutrophils # 2.4 Lymphocytes # 1.8 Monocytes # 0.5 Eosinophils # 0.2 Basophils # 0.0 Nucleated Red Blood Cells # 0.0 Sodium Level 140 Potassium Level 3.9 Chloride Level 105 Carbon Dioxide Level 27 Anion Gap 8 Blood Urea Nitrogen 16 Creatinine 1.04 Est Glomerular Filtrat Rate mL/min > 60 Glucose Level 83 Calcium Level 9.5 Medications Medication Current Medications Acetaminophen (Tylenol Tab) 650 mg Q6H PRN PO MILD PAIN(1-3)OR ELEVATED TEMP; Start 12/05/18 at 16:00 Acetaminophen/ Hydrocodone Bitart ([place] (5/325)) 1 tab Q4H PRN PO MODERATE PAIN LEVEL 4-6; Start 12/05/18 at 16:00 Gabapentin (Neurontin) 100 mg BID PO Last administered on 12/07/18at 20:30; Admin Dose 100 MG; Start 12/05/18 at 21:00 Ibuprofen (Motrin) 600 mg Q8 PRN PO PAIN; Start 12/05/18 at 16:00 Methocarbamol (Robaxin) 500 mg Q6 PO Last administered on 12/08/18at 00:50; Ad min Dose 500 MG; Start 12/05/18 at 18:00 Pantoprazole (Protonix Tab) 40 mg DAILY@06 PO Last administered on 12/07/18at 06:05; Admin Dose 40 MG; Start 12/06/18 at 06:00 Docusate Sodium (Colace) 100 mg BID PO ; Start 12/06/18 at 09:00 HUGH DEL TORO NP Dec 08, 2018 14:57
--- NOTE | 2018-12-08 18:31 | PN ---
DATE: 12/08/2018 SUBJECTIVE: The patient continues to have left lower extremity pain with mild proximal weakness. Th e patient was seen by neurosurgery again today and his MRI of the C-spine and lumbar spines were revi ewed and also abdominal angiography was negative for any obstruction. Neurosurgery has recommended t o get a neurology evaluation. The patient does not have any bladder or bowel incontinence. OBJECTIVE: GENERAL: The patient is awake and alert. VITAL SIGNS: Temperature 98.2, pulse 59, respirations 16, blood pressure 108/74 and O2 saturation 99 % on room air. NECK: No mass. CHEST: Fairly clear. CARDIOVASCULAR: S1, S2 normal, no murmur. ABDOMEN: Soft and nontender. Bowel sounds are present. EXTREMITIES: No leg edema. NEUROLOGIC: The patient is awake and alert with left lower extremity weakness proximal more than dis ania. IMPRESSION: 1. Mechanical low back pain with left lower extremity pain and mild weakness. 2. Status post sinus bradycardia when he presented in the ER, negative cardiac workup and bradycardi a has resolved. The patient in the ER had a heart rate of 51. DISPOSITION: After neurology evaluation. The patient's father in his 40s due to multiple scler osis. Dictated By: ELIER SEGOVIA/LAUREANO Conf#: [id number] DID#: [id number]
--- NOTE | 2018-12-08 19:51 | CONS ---
Assessment/Plan Assessment/Plan Hospital Course (Demo Recall) IMPRESSION: 1. Bradycardia with stable blood pressure at this time.-overall improved and stable.TSH WNL 2. Abnormal electrocardiogram. Assess for acute coronary syndrome.-neg trop x 2/NL EF by echo 60-65 3. Hypertension-borderline low BP intermittent 4. Back pain. 5. History of herniated disk. 6. Knee pain. 7. Dyslipidemia- LDL 121, HDL 55 8. DJD 9. Spinal [id number] Recc: -serial ecg's -Follow BP clsoely -pnding neurology evaluation. Per NRSG no indication for surgery at this time based upon exam and MRI/CT findings -pain control Consultation Date/Type/Reason Admit Date/Time Dec 07, 2018 at 14:02 Initial Consult Date 12/06/18 Type of Consult Cardiology Reason for Consultation Bradycardia/abnl ecg Requesting Provider: ELIER ISSA MD Date/Time of Note DATE: 12/08/18 TIME: 19:47 Exam/Review of Systems Vital Signs Vitals Vital Signs Date Temp Pulse Resp B/P (MAP) Pulse Ox O2 O2 Flow FiO2 Time Delivery Rate 12/08/18 98.2 59 16 108/74 99 Room Air 14:10 (85) Intake and Output 12/07/18 12/07/18 12/08/18 1414:59 22:59 06:59 IntakeIntake Total 700 ml 480 ml OutputOutput Total 300 ml BalanceBalance 400 ml 480 ml Exam Exam Review of Systems: CONSTITUTIONAL: No fevers, chills. PULMONARY: No sob CARDIOVASCULAR: No chest pain/palpitations GASTROINTESTINAL: No nausea/vomiting. GENITOURINARY: No hematuria/dysuria. MUSCULOSKELETAL: knee pain and back pain PSYCHIATRIC: The patient denies depression. NEUROLOGIC: No weakness Constitutional: alert Psych: no complaints Head: normocephalic ENMT: mucosa pink and moist Neck: supple, jvd (9 cm water) Respiratory: diminished breath sounds Cardiovascular: regular rate and rhythm Gastrointestinal: soft, non-tender Musculoskeletal: muscle weakness (LLE) Extremities: edema (none) Neurological: other (No focal deficits) Labs Result Diagram: 12/08/18 0446 12/08/18 0446 Results 24hrs Laboratory Tests Test 12/08/18 04:46 White Blood Count 4.9 # Red Blood Count 5.27 Hemoglobin 14.0 Hematocrit 40.7 L Mean Corpuscular Volume 77.2 L Mean Corpuscular Hemoglobin 26.6 L Mean Corpuscular Hemoglobin Concent 34.4 Red Cell Distribution Width 13.5 Platelet Count 196 Mean Platelet Volume 10.5 H Immature Granulocytes % 0.400 Neutrophils % 48.0 Lymphocytes % 36.3 Monocytes % 10.6 Eosinophils % 3.9 Basophils % 0.8 Nucleated Red Blood Cells % 0.0 Immature Granulocytes # 0.020 Neutrophils # 2.4 Lymphocytes # 1.8 Monocytes # 0.5 Eosinophils # 0.2 Basophils # 0.0 Nucleated Red Blood Cells # 0.0 Sodium Level 140 Potassium Level 3.9 Chloride Level 105 Carbon Dioxide Level 27 Anion Gap 8 Blood Urea Nitrogen 16 Creatinine 1.04 Est Glomerular Filtrat Rate mL/min > 60 Glucose Level 83 Calcium Level 9.5 Medications Medications Current Medications Acetaminophen (Tylenol Tab) 650 mg Q6H PRN PO MILD PAIN(1-3)OR ELEVATED TEMP; Start 12/05/18 at 16:00 Acetaminophen/ Hydrocodone Bitart ([place] (5/325)) 1 tab Q4H PRN PO MODERATE PAIN LEVEL 4-6; Start 12/05/18 at 16:00 Gabapentin (Neurontin) 100 mg BID PO Last administered on 12/07/18at 20:30; Admin Dose 100 MG; Start 12/05/18 at 21:00 Ibuprofen (Motrin) 600 mg Q8 PRN PO PAIN; Start 12/05/18 at 16:00 Methocarbamol (Robaxin) 500 mg Q6 PO Last administered on 12/08/18at 17:43; Admin Dose 500 MG; Start 12/05/18 at 18:00 Pantoprazole (Protonix Tab) 40 mg DAILY@06 PO Last administered on 12/07/18at 06:05; Admin Dose 40 MG; Start 12/06/18 at 06:00 Docusate Sodium (Colace) 100 mg BID PO ; Start 12/06/18 at 09:00 MATEO SKAGGS Dec 08, 2018 19:51
[2018-12-08 20:05] VITALS: BP 96/69; PULSE 77; RESP 18
[2018-12-09 02:06] VITALS: BP 98/60; PULSE 81; RESP 18
[2018-12-09] MEDS: METHOCARBAMOL 500 MG TAB PO SCH ×4 (05:13→17:50)
[2018-12-09] MEDS: PANTOPRAZOLE (EC) 40 MG TAB PO SCH (05:13)
[2018-12-09 08:00] VITALS: BP 100/68; PULSE 76; RESP 20
[2018-12-09] MEDS: DOCUSATE SODIUM 100 MG CAP PO SCH ×2 (09:00→20:46)
[2018-12-09] MEDS: GABAPENTIN 100 MG CAP PO SCH (09:23)
--- NOTE | 2018-12-09 11:22 | PN ---
Date/Time of Note Date/Time of Note DATE: 12/09/18 TIME: 11:22 Assessment/Plan VTE Prophylaxis Risk score (from Nsg)>0 risk: 1 SCD applied (from Nsg): Yes Lines/Catheters IV Catheter Type (from Nrsg): Saline Lock Urinary Cath still in place: No Assessment/Plan Assessment/Plan 1. Mechanical low back pain with left lower extremity pain and mild weakness. 2. Status post sinus bradycardia when he presented in the ER, negative cardiac workup and bradycardia has resolved. The patient in the ER had a heart rate of 51. Result Diagram: 12/08/186 12/08/18445 Exam/Review of Systems Exam Vitals Vital Signs Date Temp Pulse Resp B/P (MAP) Pulse Ox O2 O2 Flow FiO2 Time Delivery Rate 12/09/18 98.8 76 20 100/68 98 08:00 (79) 12/08/18 Room Air 14:10 Intake and Output 12/08/18 12/08/18 12/09/18 1515:00 23:00 07:00 IntakeIntake Total 750 ml 400 ml 1000 ml BalanceBalance 750 ml 400 ml 1000 ml Medications Medication Current Medications Acetaminophen (Tylenol Tab) 650 mg Q6H PRN PO MILD PAIN(1-3)OR ELEVATED TEMP; Start 12/05/18 at 16:00 Acetaminophen/ Hydrocodone Bitart ([place] (5/325)) 1 tab Q4H PRN PO MODERATE PAIN LEVEL 4-6; Start 12/05/18 at 16:00 Gabapentin (Neurontin) 100 mg BID PO Last administered on 12/09/18at 09:23; Admin Dose 100 MG; Start 12/05/18 at 21:00 Ibuprofen (Motrin) 600 mg Q8 PRN PO PAIN; Start 12/05/18 at 16:00 Methocarbamol (Robaxin) 500 mg Q6 PO Last administered on 12/09/18at 05:13; Admin Dose 500 MG; Start 12/05/18 at 18:00 Pantoprazole (Protonix Tab) 40 mg DAILY@06 PO Last administered on 12/09/18at 05:13; Admin Dose 40 MG; Start 12/06/18 at 06:00 Docusate Sodium (Colace) 100 mg BID PO ; Start 12/06/18 at 09:00 MIRIAM HENSLEY Dec 09, 2018 11:22
--- NOTE | 2018-12-09 13:35 | RADRPT ---
Vent Rate: 48 bpm RR Interval: 0 msec VT Interval: 144 msec QRS Duration: 88 msec QT Interval: 428 msec QTC Interval: 382 msec P-R-T [place]: 62 - 72 - 63 degrees Marked sinus bradycardia Abnormal ECG Electronically Signed By: Kelby Vizcaino
--- NOTE | 2018-12-09 13:46 | CONS ---
Assessment/Plan Assessment/Plan Hospital Course (Demo Recall) IMPRESSION: 1. Bradycardia with borderine but overall stable blood pressure at this time.-overall improved and stable.TSH WNL 2. Abnormal electrocardiogram. Assess for acute coronary syndrome.-neg trop x 2/NL EF by echo 60-65 3. Hypertension-borderline low BP intermittent 4. Back pain. 5. History of herniated disk. 6. Knee pain. 7. Dyslipidemia- LDL 121, HDL 55 8. DJD 9. Spinal [id number] Recc: -serial ecg's -Follow BP clsoely -pnding neurology evaluation. Per NRSG no indication for surgery at this time based upon exam and MRI/CT findings -pain control Consultation Date/Type/Reason Admit Date/Time Dec 07, 2018 at 14:02 Initial Consult Date 12/06/18 Type of Consult Cardiology Reason for Consultation bradycardia Requesting Provider: ELIER ISSA MD Date/Time of Note DATE: 12/09/18 TIME: 13:45 Exam/Review of Systems Vital Signs Vitals Vital Signs Date Temp Pulse Resp B/P (MAP) Pulse Ox O2 O2 Flow FiO2 Time Delivery Rate 12/09/18 98.8 76 20 100/68 98 08:00 (79) 12/08/18 Room Air 14:10 Intake and Output 12/08/18 12/08/18 12/09/18 1515:00 23:00 07:00 IntakeIntake Total 750 ml 400 ml 1000 ml BalanceBalance 750 ml 400 ml 1000 ml Exam Exam Review of Systems: CONSTITUTIONAL: No fevers, chills. PULMONARY: No sob CARDIOVASCULAR: No chest pain/palpitations GASTROINTESTINAL: No nausea/vomiting. GENITOURINARY: No hematuria/dysuria. MUSCULOSKELETAL: No myagias/arthalgias. PSYCHIATRIC: The patient denies depression. NEUROLOGIC: No weakness Constitutional: alert Psych: no complaints Head: normocephalic ENMT: mucosa pink and moist Neck: supple, jvd (9 cm water) Respiratory: clear to auscultation Cardiovascular: regular rate and rhythm Gastrointestinal: soft, non-tender Musculoskeletal: muscle tone (normal) Extremities: edema (none) Neurological: other (LE weakness) Labs Result Diagram: 12/09/18 1321 12/08/18 0446 Results 24hrs Laboratory Tests Test 12/09/18 13:21 White Blood Count 5.0 Red Blood Count 5.59 Hemoglobin 14.6 Hematocrit 43.6 Mean Corpuscular Volume 78.0 L Mean Corpuscular Hemoglobin 26.1 L Mean Corpuscular Hemoglobin Concent 33.5 Red Cell Distribution Width 13.5 Platelet Count 213 Mean Platelet Volume 10.2 Immature Granulocytes % 0.400 Neutrophils % 53.2 Lymphocytes % 30.2 Monocytes % 10.8 Eosinophils % 4.8 Basophils % 0.6 Nucleated Red Blood Cells % 0.0 Immature Granulocytes # 0.020 Neutrophils # 2.7 Lymphocytes # 1.5 Monocytes # 0.5 Eosinophils # 0.2 Basophils # 0.0 Nucleated Red Blood Cells # 0.0 Medications Medications Current Medications Acetaminophen (Tylenol Tab) 650 mg Q6H PRN PO MILD PAIN(1-3)OR ELEVATED TEMP; Start 12/05/18 at 16:00 Acetaminophen/ Hydrocodone Bitart ([place] (5/325)) 1 tab Q4H PRN PO MODERATE PAIN LEVEL 4-6; Start 12/05/18 at 16:00 Gabapentin (Neurontin) 100 mg BID PO Last administered on 12/09/18at 09:23; Admin Dose 100 MG; Start 12/05/18 at 21:00 Ibuprofen (Motrin) 600 mg Q8 PRN PO PAIN; Start 12/05/18 at 16:00 Methocarbamol (Robaxin) 500 mg Q6 PO Last administered on 12/09/18at 11:39; Admin Dose 500 MG; Start 12/05/18 at 18:00 Pantoprazole (Protonix Tab) 40 mg DAILY@06 PO Last administered on 12/09/18at 05:13; Admin Dose 40 MG; Start 12/06/18 at 06:00 Docusate Sodium (Colace) 100 mg BID PO ; Start 12/06/18 at 09:00 MATEO SKAGGS Dec 09, 2018 13:46
[2018-12-09 14:00] VITALS: BP 110/64; PULSE 84; RESP 20
--- NOTE | 2018-12-09 15:02 | CONS ---
Assessment/Plan Assessment/Plan Hospital Course 53 yo M with hx of chronic back pain who presents for evaluation of an acute exacerbation of his chronic back pain. MRI C/L spine was notable for multilevel degenerative changes with multilevel foraminal stenoses. The pt was seen by neurosurgery who recommended conservative management... for which neurology is consulted. His motor/sensory exam is reassuringly symmetric and with presence of deep tendon reflexes. P: Obtain CT L spine for further characterization Toradol IV x 1 dose now for acute pain, followed by oral NSAID prn Increase gabapentin to 300 TID for now, to be titrated to effect as tolerated PT/OT as necessary Other medical management per primary Will follow clinically Consultation Date/Type/Reason Admit Date/Time Dec 07, 2018 at 14:02 Type of Consult Neurology Reason for Consultation LLE pain Requesting Provider: ELIER ISSA MD Date/Time of Note DATE: 12/09/18 TIME: 15:02 Hx of Present Illness Hx of Present Illness Mr. Fay is a 53-year-old male with a past history of a heart murmur- without being on no medications , herniated back disc. Patient reported that when after he sneezed ; felt a pop in his back. Patient has history of a herniated disk, L4-L5, with an L4 nerve root impingement. Patient is admitted with c/o back pain and left knee pain x1 month associated with lower extremity weakness. During admission, temperature 97, blood pressure 140/83, pulse 60, respiratory rate 20, setting 100%. Lab work - White blood cell count 4, hemoglobin 13.6, platelet count of 198; sodium 144, potassium 4.2, creatinine 1.0, BUN 12, AST 43, ALT 41; INR 0.9. The patient underwent a knee x-ray revealing small disease near the tibial tuberosities. - EKG-revealed sinus bradycardia at 51, normal axis, normal intervals, nonspecific ST and T- wave abnormalities. Patient is admitted under Dr Issa for further evaluation and treatment. Patient is seen in room; seems comfortable; fairly oriented. She denies any evelyn st pain, shortness of breath, dizziness, headache, palpitations, abdominal pain , nausea, vomitting, bilateral calf pain. Plan of care dw staff. negative unless noted otherwise in HPI Exam/Review of Systems Exam Vitals Vital Signs Date Temp Pulse Resp B/P (MAP) Pulse Ox O2 O2 Flow FiO2 Time Delivery Rate 12/09/18 98.6 84 20 110/64 96 14:00 (79) 12/08/18 Room Air 14:10 Intake and Output 12/08/18 12/08/18 12/09/18 1515:00 23:00 07:00 IntakeIntake Total 750 ml 400 ml 1000 ml BalanceBalance 750 ml 400 ml 1000 ml Exam PE: Gen Appearance: No Apparent Distress HEENT: Normocephalic Cardiovascular: Regular rate Lungs: Clear bilaterally Abdomen: Soft Extremities: Dry NE: The patient was alert and oriented.. Language was normal. Fund of knowledge was normal. Pupils were equal and reactive to light. There was no afferent pupillary defect. Visual mares were normal. Funduscopic examination was limited. Extra-ocular movements were full. Ptosis was absent. There was no nystagmus. Facial sensation was normal. Face was symmetric with normal strength. Hearing was intact. Palate movements were normal. Neck strength was normal. There was normal tongue bulk and speed of movement. Tone was normal. Muscle bulk was normal. I did not see fasciculations. Arms and were strong; legs - hip flexors were strong BL, knee flexion/extension was strong BL, ankle flexion/dorsiflexion was weak in the L. Vibration sensation was diminished in the LE. Temperature and pinprick sensation was normal. Rapid alternating movements were normal. There was no dysmetria. There was no in tention tremor. Gait was deferred due to bedrest. Arm and leg reflexes were 2+ and symmetric. Edwards's sign was absent. Plantar responses were flexor. Results Result Diagram: 12/09/18 1321 12/09/18 1321 Results 24hrs Laboratory Tests Test 12/09/18 13:21 White Blood Count 5.0 Red Blood Count 5.59 Hemoglobin 14.6 Hematocrit 43.6 Mean Corpuscular Volume 78.0 L Mean Corpuscular Hemoglobin 26.1 L Mean Corpuscular Hemoglobin Concent 33.5 Red Cell Distribution Width 13.5 Platelet Count 213 Mean Platelet Volume 10.2 Immature Granulocytes % 0.400 Neutrophils % 53.2 Lymphocytes % 30.2 Monocytes % 10.8 Eosinophils % 4.8 Basophils % 0.6 Nucleated Red Blood Cells % 0.0 Immature Granulocytes # 0.020 Neutrophils # 2.7 Lymphocytes # 1.5 Monocytes # 0.5 Eosinophils # 0.2 Basophils # 0.0 Nucleated Red Blood Cells # 0.0 Sodium Level 140 Potassium Level 4.2 Chloride Level 105 Carbon Dioxide Level 24 Anion Gap 11 Blood Urea Nitrogen 16 Creatinine 1.02 Est Glomerular Filtrat Rate mL/min > 60 Glucose Level 108 Calcium Level 9.8 Medications Medication Current Medications Acetaminophen (Tylenol Tab) 650 mg Q6H PRN PO MILD PAIN(1-3)OR ELEVATED TEMP; Start 12/05/18 at 16:00 Acetaminophen/ Hydrocodone Bitart ([place] (5/325)) 1 tab Q4H PRN PO MODERATE PAIN LEVEL 4-6; Start 12/05/18 at 16:00 Gabapentin (Neurontin) 100 mg BID PO Last administered on 12/09/18at 09:23; Admin Dose 100 MG; Start 12/05/18 at 21:00 Ibuprofen (Motrin) 600 mg Q8 PRN PO PAIN; Start 12/05/18 at 16:00 Methocarbamol (Robaxin) 500 mg Q6 PO Last administered on 12/09/18at 11:39; Admin Dose 500 MG; Start 12/05/18 at 18:00 Pantoprazole (Protonix Tab) 40 mg DAILY@06 PO Last administered on 12/09/18at 05:13; Admin Dose 40 MG; Start 12/06/18 at 06:00 Docusate Sodium (Colace) 100 mg BID PO ; Start 12/06/18 at 09:00 Past Medical History reviewed Home Meds Reported Medications Ibuprofen* (Ibuprofen*) 600 Mg Tablet, 600 MG PO Q8 PRN for PAIN, TAB 12/05/18 Gabapentin* (Gabapentin*) 100 Mg Capsule, 100 MG PO BID, #90 CAP 12/05/18 Methocarbamol* (Methocarbamol*) 500 Mg Tablet, 500 MG PO Q6, TAB 12/05/18 Medications Current Medications Acetaminophen (Tylenol Tab) 650 mg Q6H PRN PO MILD PAIN(1-3)OR ELEVATED TEMP; Start 12/05/18 at 16:00 Acetaminophen/ Hydrocodone Bitart ([place] (5/325)) 1 tab Q4H PRN PO MODERATE PAIN LEVEL 4-6; Start 12/05/18 at 16:00 Gabapentin (Neurontin) 100 mg BID PO Last administered on 12/09/18at 09:23; Admin Dose 100 MG; Start 12/05/18 at 21:00 Ibuprofen (Motrin) 600 mg Q8 PRN PO PAIN; Start 12/05/18 at 16:00 Methocarbamol (Robaxin) 500 mg Q6 PO Last administered on 12/09/18at 11:39; Admin Dose 500 MG; Start 12/05/18 at 18:00 Pantoprazole (Protonix Tab) 40 mg DAILY@06 PO Last administered on 12/09/18at 05:13; Admin Dose 40 MG; Start 12/06/18 at 06:00 Docusate Sodium (Colace) 100 mg BID PO ; Start 12/06/18 at 09:00 Allergies: Coded Allergies: No Known Allergy (Unverified , 12/05/18) Past Surgical History reviewed Social History reviewed Alcohol Use: none Smoking Status: Never smoker Drug Use: none ESTIVEN RENDON NP Dec 09, 2018 15:02 JOSE INIGUEZ Dec 09, 2018 22:00
[2018-12-09] MEDS ORDERED: KETOROLAC 30 MG INJ IV STA (15:46)
[2018-12-09] MEDS: GABAPENTIN 300 MG CAP PO SCH ×2 (16:05→20:44)
[2018-12-09 20:05] VITALS: BP 97/56; PULSE 78; RESP 18
[2018-12-10] MEDS: METHOCARBAMOL 500 MG TAB PO SCH ×5 (00:18→23:55)
[2018-12-10 02:14] VITALS: BP 105/71; PULSE 60; RESP 18
[2018-12-10] MEDS: PANTOPRAZOLE (EC) 40 MG TAB PO SCH (05:49)
[2018-12-10 08:00] VITALS: BP 110/64; PULSE 76; RESP 18
[2018-12-10] MEDS: GABAPENTIN 300 MG CAP PO SCH ×3 (08:28→20:45)
[2018-12-10] MEDS: DOCUSATE SODIUM 100 MG CAP PO SCH ×2 (08:36→21:00)
--- NOTE | 2018-12-10 11:03 | CONS ---
Assessment/Plan Assessment/Plan Hospital Course 53 yo M with hx of chronic back pain who presents for evaluation of an acute exacerbation of his chronic back pain. MRI C/L spine was notable for multilevel degenerative changes with multilevel foraminal stenoses. The pt was seen by neurosurgery who recommended conservative management... and neurology consultation. His motor/sensory exam is reassuringly symmetric and with normal deep tendon reflexes. CT T spine is without acute Fx... notable for multilevel degenerative changes. P: Toradol iv x 1, then naproxen 250 TID for now Continue gabapentin 300 TID PT/OT as necessary Other medical management per primary Will follow clinically Consultation Date/Type/Reason Admit Date/Time Dec 07, 2018 at 14:02 Type of Consult Neurology Reason for Consultation LLE pain Requesting Provider: ELIER ISSA MD Date/Time of Note DATE: 12/10/18 TIME: 11:03 24 HR Interval Summary Free Text/Dictation Continues medsurg monitoring. Pt continues to endorse LLE pain. States that it has improved slightly. Exam Vital Signs Vitals Vital Signs Date Temp Pulse Resp B/P (MAP) Pulse Ox O2 O2 Flow FiO2 Time Delivery Rate 12/10/18 97.8 76 18 110/64 96 08:00 (79) 12/08/18 Room Air 14:10 Intake and Output 12/09/18 12/09/18 12/10/18 1414:59 22:59 06:59 IntakeIntake Total 700 ml 360 ml 1500 ml BalanceBalance 700 ml 360 ml 1500 ml Exam E: Gen Appearance: No Apparent Distress HEENT: Normocephalic Cardiovascular: Regular rate Lungs: Clear bilaterally Abdomen: Soft Extremities: Dry NE: The patient was alert and oriented.. Language was normal. Fund of knowledge was normal. Pupils were equal and reactive to light. There was no afferent pupillary defect. Visual mares were normal. Funduscopic examination was limited. Extra-ocular movements were full. Ptosis was absent. There was no nystagmus. Facial sensation was normal. Face was symmetric with normal strength. Hearing was intact. Palate movements were normal. Neck strength was normal. There was normal tongue bulk and speed of movement. Tone was normal. Muscle bulk was normal. I did not see fasciculations. Arms and were strong; legs - hip flexors were strong BL, knee flexion/extension was strong BL, ankle flexion/dorsiflexion was weak in the L. Vibration sensation was diminished in the LE. Temperature and pinprick sensation was normal. Rapid alternating movements were normal. There was no dysmetria. There was no intention tremor. Gait was deferred due to bedrest. Arm and leg reflexes were 2+ and symmetric. Edwards's sign was absent. Plantar responses were flexor. ESTIVEN RENDON NP Dec 10, 2018 11:03 JOSE INIGUEZ Dec 10, 2018 12:02
[2018-12-10] MEDS ORDERED: KETOROLAC 30 MG INJ IV STA (12:02)
[2018-12-10] MEDS ORDERED: NAPROXEN 250 MG TAB PO SCH (12:30)
[2018-12-10 14:00] VITALS: BP 118/72; PULSE 64; RESP 20
--- NOTE | 2018-12-10 15:23 | CONS ---
Consult Date/Type/Reason Admit Date/Time Dec 07, 2018 at 14:02 Initial Consult Date Requesting Provider: ELIER ISSA MD Date/Time of Note DATE: 12/10/18 TIME: 15:22 Subjective No acute events - pt stable - NO Cp - not lena now ROS: No fever, no chills, no nausea, no vomiting, no diarrhea/constipation No recent weight changes No chest pain, no PND, no orthopnea No dizziness, blurred vision + back pain No thirst, no heat or cold intolerance Objective Vitals Vital Signs Date Temp Pulse Resp B/P (MAP) Pulse Ox O2 O2 Flow FiO2 Time Delivery Rate 12/10/18 98.8 64 20 118/72 96 14:00 (87) 12/08/18 Room Air 14:10 Intake and Output 12/09/18 12/09/18 12/10/18 1515:00 23:00 07:00 IntakeIntake Total 700 ml 360 ml 1500 ml BalanceBalance 700 ml 360 ml 1500 ml Exam General: WN/WD/NAD, AOx 3 HEENT: Unicetric/atraumatic/EOMI (follows commands) NECK: JVD elevated, no thyromegaly Lymph: no lymphadenopathy HEART: regular with no S3, II/ systolic murmur at apex LUNGS: Coarse sounds ABD: soft, NT, ND, +BS : Intact Neuro: non focal SKIN: chronic changes EXT: trace edema Results/Medications Result Diagram: 12/10/186 12/10/186 Results 24 hrs Laboratory Tests Test 12/10/18 04:26 White Blood Count 4.3 L Red Blood Count 5.01 Hemoglobin 12.9 L Hematocrit 39.2 L Mean Corpuscular Volume 78.2 L Mean Corpuscular Hemoglobin 25.7 L Mean Corpuscular Hemoglobin Concent 32.9 Red Cell Distribution Width 13.6 Platelet Count 187 Mean Platelet Volume 10.5 H Immature Granulocytes % 0.700 H Neutrophils % 45.1 Lymphocytes % 37.8 Monocytes % 10.4 Eosinophils % 5.1 Basophils % 0.9 Nucleated Red Blood Cells % 0.0 Immature Granulocytes # 0.030 Neutrophils # 1.9 Lymphocytes # 1.6 Monocytes # 0.5 Eosinophils # 0.2 Basophils # 0.0 Nucleated Red Blood Cells # 0.0 Sodium Level 141 Potassium Level 4.1 Chloride Level 106 Carbon Dioxide Level 27 Anion Gap 8 Blood Urea Nitrogen 22 H Creatinine 1.09 Est Glomerular Filtrat Rate mL/min > 60 Glucose Level 81 Calcium Level 9.4 Home Meds Reported Medications Ibuprofen* (Ibuprofen*) 600 Mg Tablet, 600 MG PO Q8 PRN for PAIN, TAB 12/05/18 Gabapentin* (Gabapentin*) 100 Mg Capsule, 100 MG PO BID, #90 CAP 12/05/18 Methocarbamol* (Methocarbamol*) 500 Mg Tablet, 500 MG PO Q6, TAB 12/05/18 Medications Current Medications Acetaminophen (Tylenol Tab) 650 mg Q6H PRN PO MILD PAIN(1-3)OR ELEVATED TEMP; Start 12/05/18 at 16:00 Acetaminophen/ Hydrocodone Bitart ([place] (5/325)) 1 tab Q4H PRN PO MODERATE PAIN LEVEL 4-6; Start 12/05/18 at 16:00 Methocarbamol (Robaxin) 500 mg Q6 PO Last administered on 12/10/18at 13:15; Admin Dose 500 MG; Start 12/05/18 at 18:00 Pantoprazole (Protonix Tab) 40 mg DAILY@06 PO Last administered on 12/10/18at 05:49; Admin Dose 40 MG; Start 12/06/18 at 06:00 Docusate Sodium (Colace) 100 mg BID PO ; Start 12/06/18 at 09:00 Gabapentin (Neurontin) 300 mg TID PO Last administered on 12/10/18at 13:15; Admin Dose 300 MG; Start 12/09/18 at 16:00 Naproxen (Naprosyn) 500 mg WITH MEALS PO ; Start 12/10/18 at 17:35 Assessment/Plan Hospital Course (Demo Recall) 1. Bradycardia with stable blood pressure at this time - HR stable - off tele now- not dizzy. NO Class I indictation for pacer now 2. Abnormal electrocardiogram. Assess for acute coronary syndrome - r/o PA. NO CP now. 3. Hypertension, labile, borderline when he first came in, now fine, possibly just due to pain - con't to adjust Rx. 4. Back pain -defer to pMD. - con't pain meds 5. History of herniated disk - no surgery planned now. 6. Knee pain- on meds DAREK SIMMS MD Dec 10, 2018 15:23
--- NOTE | 2018-12-10 15:32 | PN ---
Date/Time of Note Date/Time of Note DATE: 12/10/18 TIME: 15:32 Assessment/Plan VTE Prophylaxis Risk score (from Nsg)>0 risk: 2 SCD applied (from Nsg): Yes Lines/Catheters IV Catheter Type (from Nrsg): Saline Lock Urinary Cath still in place: No Assessment/Plan Assessment/Plan 1. Mechanical low back pain with left lower extremity pain and mild weakness. 2. Status post sinus bradycardia when he presented in the ER, negative cardiac workup and bradycardia has resolved. The patient in the ER had a heart rate of 51. Result Diagram: 12/10/1842512/10/186 Results 24hrs Laboratory Tests Test 12/10/18 04:26 White Blood Count 4.3 L Red Blood Count 5.01 Hemoglobin 12.9 L Hematocrit 39.2 L Mean Corpuscular Volume 78.2 L Mean Corpuscular Hemoglobin 25.7 L Mean Corpuscular Hemoglobin Concent 32.9 Red Cell Distribution Width 13.6 Platelet Count 187 Mean Platelet Volume 10.5 H Immature Granulocytes % 0.700 H Neutrophils % 45.1 Lymphocytes % 37.8 Monocytes % 10.4 Eosinophils % 5.1 Basophils % 0.9 Nucleated Red Blood Cells % 0.0 Immature Granulocytes # 0.030 Neutrophils # 1.9 Lymphocytes # 1.6 Monocytes # 0.5 Eosinophils # 0.2 Basophils # 0.0 Nucleated Red Blood Cells # 0.0 Sodium Level 141 Potassium Level 4.1 Chloride Level 106 Carbon Dioxide Level 27 Anion Gap 8 Blood Urea Nitrogen 22 H Creatinine 1.09 Est Glomerular Filtrat Rate mL/min > 60 Glucose Level 81 Calcium Level 9.4 Exam/Review of Systems Exam Vitals Vital Signs Date Temp Pulse Resp B/P (MAP) Pulse Ox O2 O2 Flow FiO2 Time Delivery Rate 12/10/18 98.8 64 20 118/72 96 14:00 (87) 12/08/18 Room Air 14:10 Intake and Output 12/09/18 12/09/18 12/10/18 1515:00 23:00 07:00 IntakeIntake Total 700 ml 360 ml 1500 ml BalanceBalance 700 ml 360 ml 1500 ml Results Results 24hrs Laboratory Tests Test 12/10/18 04:26 White Blood Count 4.3 L Red Blood Count 5.01 Hemoglobin 12.9 L Hematocrit 39.2 L Mean Corpuscular Volume 78.2 L Mean Corpuscular Hemoglobin 25.7 L Mean Corpuscular Hemoglobin Concent 32.9 Red Cell Distribution Width 13.6 Platelet Count 187 Mean Platelet Volume 10.5 H Immature Granulocytes % 0.700 H Neutrophils % 45.1 Lymphocytes % 37.8 Monocytes % 10.4 Eosinophils % 5.1 Basophils % 0.9 Nucleated Red Blood Cells % 0.0 Immature Granulocytes # 0.030 Neutrophils # 1.9 Lymphocytes # 1.6 Monocytes # 0.5 Eosinophils # 0.2 Basophils # 0.0 Nucleated Red Blood Cells # 0.0 Sodium Level 141 Potassium Level 4.1 Chloride Level 106 Carbon Dioxide Level 27 Anion Gap 8 Blood Urea Nitrogen 22 H Creatinine 1.09 Est Glomerular Filtrat Rate mL/min > 60 Glucose Level 81 Calcium Level 9.4 Medications Medication Current Medications Acetaminophen (Tylenol Tab) 650 mg Q6H PRN PO MILD PAIN(1-3)OR ELEVATED TEMP; Start 12/05/18 at 16:00 Acetaminophen/ Hydrocodone Bitart ([place] (5/325)) 1 tab Q4H PRN PO MODERATE P AIN LEVEL 4-6; Start 12/05/18 at 16:00 Methocarbamol (Robaxin) 500 mg Q6 PO Last administered on 12/10/18at 13:15; Admin Dose 500 MG; Start 12/05/18 at 18:00 Pantoprazole (Protonix Tab) 40 mg DAILY@06 PO Last administered on 12/10/18at 05:49; Admin Dose 40 MG; Start 12/06/18 at 06:00 Docusate Sodium (Colace) 100 mg BID PO ; Start 12/06/18 at 09:00 Gabapentin (Neurontin) 300 mg TID PO Last administered on 12/10/18at 13:15; Admin Dose 300 MG; Start 12/09/18 at 16:00 Naproxen (Naprosyn) 500 mg WITH MEALS PO ; Start 12/10/18 at 17:35 MIRIAM HENSLEY Dec 10, 2018 15:32
[2018-12-10] MEDS: NAPROXEN 500 MG TAB PO SCH (17:50)
[2018-12-10 20:00] VITALS: BP 107/67; PULSE 61; RESP 18
[2018-12-11 02:00] VITALS: BP 101/59; PULSE 62; RESP 17
[2018-12-11] MEDS: METHOCARBAMOL 500 MG TAB PO SCH ×2 (06:16→12:29)
[2018-12-11] MEDS: PANTOPRAZOLE (EC) 40 MG TAB PO SCH (06:16)
[2018-12-11] MEDS: NAPROXEN 500 MG TAB PO SCH ×2 (08:03→12:29)
[2018-12-11] MEDS: GABAPENTIN 300 MG CAP PO SCH ×2 (08:03→12:29)
[2018-12-11] MEDS: DOCUSATE SODIUM 100 MG CAP PO SCH (09:00)
[2018-12-11 09:02] VITALS: BP 124/74; PULSE 61; RESP 17
--- NOTE | 2018-12-11 13:27 | PDOCDIS ---
Discharge Instructions CONDITION [id number] Patient Condition: [id number] Good HOME CARE INSTRUCTIONS: [id number] Diet Instructions: [id number] Regular ACTIVITY: [id number] Activity Restrictions: [id number] No Restrictions FOLLOW UP/APPOINTMENTS Follow-up Plan f/u with PMD & Dr. Jacobs in 1-2 weeks ELIER ISSA MD Dec 11, 2018 13:27
[2018-12-11] MEDS ORDERED: GABA300C16 PO (13:29)
--- NOTE | 2018-12-11 14:43 | CONS ---
Consult Date/Type/Reason Admit Date/Time Dec 07, 2018 at 14:02 Initial Consult Date Requesting Provider: ELIER ISSA MD Date/Time of Note DATE: 12/11/18 TIME: 14:43 Subjective vs reviewed - stable Objective Vitals Vital Signs Date Temp Pulse Resp B/P (MAP) Pulse Ox O2 O2 Flow FiO2 Time Delivery Rate 12/11/18 98.5 61 17 124/74 99 Room Air 09:02 (91) Intake and Output 12/10/18 12/10/18 12/11/18 1515:00 23:00 07:00 IntakeIntake Total 700 ml 300 ml BalanceBalance 700 ml 300 ml Results/Medications Result Diagram: 12/10/1842512/10/18425 Home Meds Active Scripts Gabapentin* (Gabapentin*) 300 Mg Capsule, 300 MG PO TID for 20 Days, #60 CAP Prov:ELIER ISSA MD 12/11/18 Reported Medications Ibuprofen* (Ibuprofen*) 600 Mg Tablet, 600 MG PO Q8 PRN for PAIN, TAB 12/05/18 Methocarbamol* (Methocarbamol*) 500 Mg Tablet, 500 MG PO Q6, TAB 12/05/18 Discontinued Reported Medications Gabapentin* (Gabapentin*) 100 Mg Capsule, 100 MG PO BID, #90 CAP 12/05/18 Medications Current Medications Acetaminophen (Tylenol Tab) 650 mg Q6H PRN PO MILD PAIN(1-3)OR ELEVATED TEMP; Start 12/05/18 at 16:00 Acetaminophen/ Hydrocodone Bitart ([place] (5/325)) 1 tab Q4H PRN PO MODERATE PAIN LEVEL 4-6; Start 12/05/18 at 16:00 Methocarbamol (Robaxin) 500 mg Q6 PO Last administered on 12/11/18at 12:29; Admin Dose 500 MG; Start 12/05/18 at 18:00 Pantoprazole (Protonix Tab) 40 mg DAILY@06 PO Last administered on 12/11/18at 06:16; Admin Dose 40 MG; Start 12/06/18 at 06:00 Docusate Sodium (Colace) 100 mg BID PO ; Start 12/06/18 at 09:00 Gabapentin (Neurontin) 300 mg TID PO Last administered on 12/11/18at 12:29; Admin Dose 300 MG; Start 12/09/18 at 16:00 Naproxen (Naprosyn) 500 mg WITH MEALS PO Last administered on 12/11/18at 12:29; Admin Dose 500 MG; Start 12/10/18 at 17:35 Assessment/Plan Hospital Course (Demo Recall) 1. Bradycardia with stable blood pressure at this time - HR stable - off tele now- not dizzy. NO Class I indictation for pacer now 2. Abnormal electrocardiogram. Assess for acute coronary syndrome - r/o RI. NO CP now. 3. Hypertension, labile, borderline when he first came in, now fine, possibly just due to pain - con't to adjust Rx. 4. Back pain -defer to pMD. - con't pain meds 5. History of herniated disk - no surgery planned now. 6. Knee pain- on meds DAREK SIMMS MD Dec 11, 2018 14:43
--- NOTE | 2018-12-11 15:40 | CONS ---
Assessment/Plan Assessment/Plan Hospital Course 53 yo M with hx of chronic back pain who presents for evaluation of an acute exacerbation of his chronic back pain. MRI C/L spine was notable for multilevel degenerative changes with multilevel foraminal stenoses. The pt was seen by neurosurgery who recommended conservative management... and neurology consultation. His motor/sensory exam is reassuringly symmetric and with normal deep tendon reflexes. CT T spine is without acute Fx... notable for multilevel degenerative changes. P: Continue gabapentin 300 TID Naproxen 500mg tid prn PT/OT as necessary Other medical management per primary Will sign off; please call w/ ?s Consultation Date/Type/Reason Admit Date/Time Dec 07, 2018 at 14:02 Type of Consult Neurology Requesting Provider: ELIER ISSA MD Date/Time of Note DATE: 12/11/18 TIME: 15:39 24 HR Interval Summary Free Text/Dictation Continues acute care Exam Vital Signs Vitals Vital Signs Date Temp Pulse Resp B/P (MAP) Pulse Ox O2 O2 Flow FiO2 Time Delivery Rate 12/11/18 98.5 61 17 124/74 99 Room Air 09:02 (91) Intake and Output 12/10/18 12/10/18 12/11/18 1515:00 23:00 07:00 IntakeIntake Total 700 ml 300 ml BalanceBalance 700 ml 300 ml Exam E: Gen Appearance: No Apparent Distress HEENT: Normocephalic Cardiovascular: Regular rate Lungs: Clear bilaterally Abdomen: Soft Extremities: Dry NE: The patient was alert and oriented.. Language was normal. Fund of knowledge was normal. Pupils were equal and reactive to light. There was no afferent pupillary defect. Visual mares were normal. Funduscopic examination was limited. Extra-ocular movements were full. Ptosis was absent. There was no nystagmus. Facial sensation was normal. Face was symmetric with normal strength. Hearing was intact. Palate movements were normal. Neck strength was normal. There was normal tongue bulk and speed of movement. Tone was normal. Muscle bulk was normal. I did not see fasciculations. Arms and legs were symmetric,. Vibration sensation was reduced distally. Temperature and pinprick sensation was normal. Rapid alternating movements were normal. There was no dysmetria. There was no intention tremor. Gait was deferred due to bedrest. Arm and leg reflexes were symmetric. Edwards's sign was absent. Plantar responses were flexor. JOSE INIGUEZ Dec 11, 2018 15:40
== END 2018-12-11 15:30 | disposition home or self-care (01) | DRG 552 ==
LOC: FTE 07:35 → PP2 11:41 → OBSVTOIN 12-07 14:02
PROVIDERS: ADMIT Internal Medicine; ATTEND Internal Medicine
DX: M51.16 Intervertebral disc disorders with radiculopathy, lumbar region (principal); M48.061 Spinal stenosis, lumbar region without neurogenic claudication; R00.1 Bradycardia, unspecified; I10 Essential (primary) hypertension; R94.31 Abnormal electrocardiogram [ECG] [EKG]; G89.29 Other chronic pain; E78.5 Hyperlipidemia, unspecified
CPT/HCPCS: 36415; 71046; 72128; 72141; 72148; 73562; 75635; 80048; 80053; 80061; 84443; 84484; 85025; 85610; 85730; 93005; 93306; G0378; J1885; Q9967